=== PATIENT | male | born 1955 | race Caucasian/White ===

== ENCOUNTER 2024-08-31 12:00 | Emergency (ER) | payer MEDICAID, OTHER ==
[~2024-08-31] VITALS: Ht 180.3 cm; Wt 53.5 kg
[2024-08-31 12:08] VITALS: O2SAT 98
[2024-08-31 12:49] VITALS: BP 123/72; PULSE 80; RESP 16; TEMP 97.5; O2SAT 98
[2024-08-31 13:26] LABS: BASOPHILS % 0.2 % (0.0-2.0); EOSINOPHILS % 0.6 % (0.0-5.0); HEMATOCRIT. 34.7 % (42.0-52.0); HEMOGLOBIN. 11.4 g/dL (14.0-18.0); LYMPHOCYTES % 21.1 % (20.0-50.0); MEAN CORPUSCULAR HGB CONC 32.9 g/dL (31.0-37.0); MEAN PLATELET VOLUME 8.4 fl (7.4-10.4); MONOCYTES % 7.7 % (2.0-8.0); NEUTROPHILS % 70.4 % (40.0-76.0); PLATELET 309 x1000/uL (130-400); RED BLOOD CELL COUNT 4.23 mill/uL (4.7-6.1); WHITE BLOOD COUNT 10.1 x1000/uL (4.5-11.0)
[2024-08-31 13:32] LABS: CHLORIDE 103 mEq/L (98-107); POTASSIUM 4.8 mEq/L (3.5-5.1); SODIUM 137 mEq/L (136-145)
[2024-08-31 13:33] LABS: CALCIUM 9.4 mg/dL (8.7-10.4); CARBON DIOXIDE 25 mEq/L (21-32)
[2024-08-31 13:38] LABS: CREATININE 1.2 mg/dL (0.6-1.3); GLUCOSE 297 mg/dL (70-105); UREA NITROGEN BLOOD 18 mg/dL (9-23)
[2024-08-31 13:39] LABS: ALANINE AMINOTRANSFERASE 35 IU/L (10-49); ASPARTATE AMINOTRANSFERASE 21 IU/L (<34)
[2024-08-31 13:40] LABS: ALBUMIN 4.2 g/dL (3.2-4.8); BILIRUBIN DIRECT 0.2 mg/dL (<=3.0); BILIRUBIN TOTAL 0.6 mg/dL (0.1-1.0); PROTEIN TOTAL 8.3 g/dL (6.0-8.3)
[2024-08-31 14:14] LABS: ETHANOL BLOOD < 10 mg/dL (<10)
[2024-08-31 14:26] LABS: BETA HYDROXYBUTYRATE < 0.1 mMol/L (0.0-0.3)
[2024-08-31] MEDS ORDERED: IBUP-2029 MT (14:28)
[2024-08-31] MEDS ORDERED: ONDA-239 PO (14:29)
[2024-08-31 15:35] LABS: CLARITY URINE CLOUDY (CLEAR); COLOR URINE YELLOW (YELLOW); GLUCOSE URINE 3+ (NEGATIVE); KETONES URINE NEGATIVE (NEGATIVE); LEUKOCYTE ESTERASE URINE TRACE (NEGATIVE); NITRITE URINE NEGATIVE (NEGATIVE); OCCULT BLOOD URINE NEGATIVE (NEGATIVE); PH URINE 5.5 (4.5-8.0); PROTEIN URINE TRACE (NEGATIVE); SPECIFIC GRAVITY URINE 1.019 (1.005-1.030)
[2024-08-31 15:49] LABS: *AMPHETAMINES SCREEN URINE NEGATIVE (NEGATIVE); *BARBITURATES SCREEN URINE NEGATIVE (NEGATIVE); *BENZODIAZEPINES SCREEN URINE NEGATIVE (NEGATIVE); *COCAINE SCREEN URINE NEGATIVE (NEGATIVE); CANNABINOID URINE SCREEN PRESUMPTIVE POSITIVE (NEGATIVE); ECSTASY MDMA SCREEN URINE NEGATIVE (NEGATIVE); METHADONE URINE SCREEN NEGATIVE (NEGATIVE); OPIATES URINE SCREEN NEGATIVE (NEGATIVE); PHENCYCLIDINE URINE SCREEN NEGATIVE (NEGATIVE)
[2024-08-31 16:21] LABS: BACTERIA URINE 4+; RBC URINE 0-2 /hpf (0-2); SQUAMOUS EPITHELIAL CELL URINE RARE /lpf (RARE/1+)
== END 2024-08-31 14:58 | disposition home or self-care (01) ==
LOC: ER 12:16
DX: E11.65 Type 2 diabetes mellitus with hyperglycemia (principal); J06.9 Acute upper respiratory infection, unspecified
CPT/HCPCS: 36415; 71045; 80048; 80076; 80305; 80320; 81003; 82010; 82962; 85025; 99284; G0480

== ENCOUNTER 2024-11-05 13:45 | Inpatient (IN) | payer OTHER ==
[~2024-11-05] VITALS: Ht 182.9 cm; Wt 64.6 kg
[~2024-11-05 13:45] MED LIST: ASPI-1160 PO; ATOR20TA65 PO; GLIP10TA17 PO; IBUP-2029 MT; METF-416 PO; ONDA-239 PO; QUET25TA36 PO; SERT-422 PO; TAMS-11
[2024-11-05] MEDS: PIPERACILLIN/TAZO 3.375G/50ML 50 ML IV ONE (14:39)
[2024-11-05] MEDS: SODIUM CHLORIDE 0.9% (SEPSIS BOLUS) IV ONE (14:39)
[2024-11-05] MEDS: VANCOMYCIN 1G PREMIX 200 ML IV ONE (15:38)
[2024-11-05 15:53] LABS: BASOPHILS % 0.3 % (0.0-2.0); EOSINOPHILS % 2.4 % (0.0-5.0); LYMPHOCYTES % 25.4 % (20.0-50.0); MEAN CORPUSCULAR HEMOGLOBIN 27.1 pg (28.0-32.0); MEAN CORPUSCULAR HGB CONC 32.2 g/dL (31.0-37.0); MEAN CORPUSCULAR VOLUME 84.3 fL (80.0-94.0); MONOCYTES % 5.4 % (2.0-8.0); NEUTROPHILS % 66.5 % (40.0-76.0); PLATELET 280 x1000/uL (130-400); RED BLOOD CELL COUNT 2.97 mill/uL (4.7-6.1); RED CELL DISTRIBUTION WIDTH 17.4 % (11.6-14.6); WHITE BLOOD COUNT 14.8 x1000/uL (4.5-11.0)
[2024-11-05 16:03] LABS: CHLORIDE 104 mEq/L (98-107); POTASSIUM 3.9 mEq/L (3.5-5.1); SODIUM 140 mEq/L (136-145)
[2024-11-05 16:04] LABS: CALCIUM 8.6 mg/dL (8.7-10.4); CARBON DIOXIDE 28 mEq/L (21-32)
[2024-11-05 16:05] LABS: PARTIAL THROMBOPLASTIN TIME 28.2 sec (23.4-31.0); PROTHROMBIN TIME 11.5 sec (9.6-11.0)
[2024-11-05 16:09] LABS: CREATININE 0.9 mg/dL (0.6-1.3); GLUCOSE 74 mg/dL (70-105); UREA NITROGEN BLOOD 20 mg/dL (9-23)
[2024-11-05 16:11] LABS: ALANINE AMINOTRANSFERASE 20 IU/L (10-49); ALBUMIN 2.7 g/dL (3.2-4.8); ASPARTATE AMINOTRANSFERASE 20 IU/L (<34); BILIRUBIN DIRECT 0.2 mg/dL (<=3.0); BILIRUBIN TOTAL 0.4 mg/dL (0.1-1.0); LACTIC ACID 2.4 mmol/L (0.4-2.0); PROTEIN TOTAL 7.6 g/dL (6.0-8.3)
[2024-11-05 16:21] LABS: TROPONIN I HIGH SENSITIVITY < 4 ng/L (3.0-53)
[2024-11-05 16:45] LABS: CLARITY URINE CLOUDY (CLEAR); COLOR URINE YELLOW (YELLOW); GLUCOSE URINE NEGATIVE (NEGATIVE); KETONES URINE NEGATIVE (NEGATIVE); LEUKOCYTE ESTERASE URINE 1+ (NEGATIVE); NITRITE URINE NEGATIVE (NEGATIVE); OCCULT BLOOD URINE 2+ (NEGATIVE); PROTEIN URINE 2+ (NEGATIVE); SPECIFIC GRAVITY URINE 1.021 (1.005-1.030); UROBILINOGEN URINE 0.2 E.U./dL (0.2-1.0)
[2024-11-05 16:53] LABS: RBC URINE 0-2 /hpf (0-2)
[2024-11-05 16:54] LABS: BACTERIA URINE 4+; SQUAMOUS EPITHELIAL CELL URINE NONE SEEN /lpf (RARE/1+); YEAST URINE 2+
[2024-11-05] MEDS ORDERED: CLONIDINE 0.1MG TABLET PO PRN (19:00)
[2024-11-05] MEDS ORDERED: ONDANSETRON HCL 4MG/2ML INJ IV PRN (19:00)
[2024-11-05] MEDS ORDERED: HYDROCODONE/ACETAMINOPHEN 5/325MG TABLET PO PRN (19:00)
[2024-11-05] MEDS ORDERED: SODIUM CHLORIDE 0.9% 250 ML IV NR (23:00)
[2024-11-05] MEDS: MIDODRINE HCL 5MG TABLET PO SCH (23:08)
[2024-11-06] VITALS (8 sets, daily range): BP systolic 92–124; BP diastolic 58–80; PULSE 102–130; RESP 32–42; TEMP 36.3–37.3; O2SAT 97–99
[2024-11-06] MEDS: ALBUMIN HUMAN 25GM/500ML (5%) IV NR (00:58)
[2024-11-06 06:49] LABS: BASOPHILS % 0.3 % (0.0-2.0); EOSINOPHILS % 2.7 % (0.0-5.0); HEMOGLOBIN. 8.3 g/dL (14.0-18.0); LYMPHOCYTES % 15.4 % (20.0-50.0); MEAN CORPUSCULAR HEMOGLOBIN 28.2 pg (28.0-32.0); MEAN CORPUSCULAR HGB CONC 33.2 g/dL (31.0-37.0); MEAN CORPUSCULAR VOLUME 84.8 fL (80.0-94.0); NEUTROPHILS % 78.6 % (40.0-76.0); PLATELET 282 x1000/uL (130-400); RED BLOOD CELL COUNT 2.95 mill/uL (4.7-6.1); RED CELL DISTRIBUTION WIDTH 17.4 % (11.6-14.6); WHITE BLOOD COUNT 12.4 x1000/uL (4.5-11.0)
[2024-11-06 07:01] LABS: CHLORIDE 111 mEq/L (98-107); POTASSIUM 3.8 mEq/L (3.5-5.1); SODIUM 142 mEq/L (136-145)
[2024-11-06 07:02] LABS: CALCIUM 8.4 mg/dL (8.7-10.4); CARBON DIOXIDE 24 mEq/L (21-32)
[2024-11-06 07:07] LABS: CREATININE 0.7 mg/dL (0.6-1.3); GLUCOSE 126 mg/dL (70-105); UREA NITROGEN BLOOD 13 mg/dL (9-23)
[2024-11-06 07:27] LABS: CREATINE KINASE < 15 IU/L (46-171); TROPONIN I HIGH SENSITIVITY < 4 ng/L (3.0-53)
[2024-11-06] MEDS ORDERED: NALOXONE HCL 0.4MG/ML VIAL IV PRN (09:45)
[2024-11-06] MEDS: ENOXAPARIN 40MG/0.4ML SYR SUBCUT SCH (10:54)
[2024-11-06] MEDS: PANTOPRAZOLE SODIUM 40 MG/VIAL IV SCH (10:54)
[2024-11-06] MEDS: DILTIAZEM HCL 30MG TABLET PO SCH (11:19)
[2024-11-06 11:22] LABS: *AMPHETAMINES SCREEN URINE NEGATIVE (NEGATIVE)
[2024-11-06 11:23] LABS: *BARBITURATES SCREEN URINE NEGATIVE (NEGATIVE); *BENZODIAZEPINES SCREEN URINE NEGATIVE (NEGATIVE); *COCAINE SCREEN URINE NEGATIVE (NEGATIVE); METHADONE URINE SCREEN NEGATIVE (NEGATIVE); OPIATES URINE SCREEN NEGATIVE (NEGATIVE); PHENCYCLIDINE URINE SCREEN NEGATIVE (NEGATIVE)
[2024-11-06 11:24] LABS: CANNABINOID URINE SCREEN NEGATIVE (NEGATIVE); ECSTASY MDMA SCREEN URINE NEGATIVE (NEGATIVE)
[2024-11-06] MEDS ORDERED: CEFEPIME 1GM IN DEXT 5% 50ML IV SCH (12:30)
[2024-11-06 14:39] LABS: CREATINE KINASE < 15 IU/L (46-171); TROPONIN I HIGH SENSITIVITY < 4 ng/L (3.0-53)
[2024-11-06] MEDS: CEFEPIME 2GM/50ML DUPLEX 50 ML IV SCH (15:36)
[2024-11-06] MEDS: BLOOD SUGAR DIAGNOSTIC STRIP TEST SCH (17:30)
[2024-11-06] MEDS: ACETAMINOPHEN 325MG TABLET PO PRN (17:31)
[2024-11-06] MEDS: INSULIN LISPRO 100 UNITS/ML SUBCUT SCH (18:41)
[2024-11-06] MEDS: ZOLPIDEM TARTRATE 5MG TABLET PO PRN (23:09)
[2024-11-07] VITALS (21 sets, daily range): BP systolic 76–119; BP diastolic 45–77; PULSE 102–136; RESP 22–42; TEMP 36.6–37.4; O2SAT 91–100
[2024-11-07] MEDS: CEFEPIME 2GM/50ML DUPLEX 50 ML IV SCH (05:43)
[2024-11-07 07:04] LABS: CARBON DIOXIDE 25 mEq/L (21-32); CHLORIDE 107 mEq/L (98-107); POTASSIUM 3.5 mEq/L (3.5-5.1); SODIUM 140 mEq/L (136-145)
[2024-11-07 07:05] LABS: CALCIUM 8.5 mg/dL (8.7-10.4)
[2024-11-07 07:09] LABS: CREATININE 0.7 mg/dL (0.6-1.3)
[2024-11-07 07:10] LABS: GLUCOSE 99 mg/dL (70-105); UREA NITROGEN BLOOD 12 mg/dL (9-23)
[2024-11-07 07:12] LABS: THYROID STIMULATING HORMONE 0.72 uIU/mL (0.55-4.78)
[2024-11-07 07:58] LABS: BASOPHILS % 0.9 % (0.0-2.0); EOSINOPHILS % 3.4 % (0.0-5.0); HEMATOCRIT. 22.3 % (42.0-52.0); HEMOGLOBIN. 7.3 g/dL (14.0-18.0); LYMPHOCYTES % 17.3 % (20.0-50.0); MEAN CORPUSCULAR HEMOGLOBIN 27.1 pg (28.0-32.0); MEAN CORPUSCULAR HGB CONC 32.7 g/dL (31.0-37.0); MEAN CORPUSCULAR VOLUME 82.9 fL (80.0-94.0); MEAN PLATELET VOLUME 8.4 fl (7.4-10.4); MONOCYTES % 2.8 % (2.0-8.0); NEUTROPHILS % 75.6 % (40.0-76.0); PLATELET 275 x1000/uL (130-400); RED BLOOD CELL COUNT 2.69 mill/uL (4.7-6.1); RED CELL DISTRIBUTION WIDTH 17.4 % (11.6-14.6); WHITE BLOOD COUNT 13.6 x1000/uL (4.5-11.0)
[2024-11-07] MEDS: LACTULOSE 20G/30ML UDC PO PRN (15:28)
[2024-11-07] MEDS: NA PHOS,M-B/NA PHOS,DI-BA ENEMA 118ML PR ONE (16:02)
[2024-11-07] MEDS: NA PHOS,M-B/NA PHOS,DI-BA ENEMA 118ML PR NR (16:33)
[2024-11-07] MEDS: MINERAL OIL ENEMA 133ML PR NR (17:44)
[2024-11-08] VITALS (12 sets, daily range): BP systolic 99–132; BP diastolic 62–76; PULSE 108–134; RESP 20–43; TEMP 36.8–38; O2SAT 93–98
[2024-11-08] MEDS ORDERED: FLUC100T MT (13:18)
[2024-11-08] MEDS ORDERED: LEVO750T68 MT (13:18)
[2024-11-08] MEDS: FLUCONAZOLE 100MG TABLET PO SCH (13:47)
[2024-11-09] VITALS (13 sets, daily range): BP systolic 95–120; BP diastolic 52–77; PULSE 96–124; RESP 26–54; TEMP 36.5–37.8; O2SAT 90–100
[2024-11-09] MEDS: METOPROLOL TARTRATE 25MG TABLET PO SCH (13:10)
[2024-11-09] MEDS: LORAZEPAM 0.5MG TABLET PO NR (17:44)
[2024-11-09] MEDS: LINEZOLID 600MG TABLET PO SCH (17:44)
[2024-11-09] MEDS: MIDODRINE HCL 2.5MG TABLET PO SCH (17:45)
[2024-11-09] MEDS: MORPHINE SULFATE 2 MG/ML INJ (NOT FOR IM USE) IV PRN (22:59)
[2024-11-10] VITALS (12 sets, daily range): BP systolic 90–109; BP diastolic 58–70; PULSE 101–118; RESP 23–41; TEMP 36.2–37.1; O2SAT 96–100
[2024-11-10] MEDS: MIDODRINE HCL 5MG TABLET PO SCH (12:54)
[2024-11-10] MEDS: SODIUM CHLORIDE 0.9% 500 ML IV ONE (13:15)
[2024-11-10] MEDS: DIGOXIN 500MCG/2ML AMP IV NR (16:43)
[2024-11-11] VITALS (13 sets, daily range): BP systolic 102–154; BP diastolic 61–93; PULSE 117–132; RESP 24–52; TEMP 36.3–37.3; O2SAT 75–100
[2024-11-11] MEDS: ENOXAPARIN 30MG/0.3ML SYR SUBCUT SCH (10:16)
[2024-11-11] MEDS: METOPROLOL TARTRATE 25MG TABLET PO SCH (10:17)
[2024-11-11] MEDS: LORAZEPAM 1MG TABLET PO PRN (14:22)
[2024-11-11 18:06] LABS: BASOPHILS % 0.3 % (0.0-2.0); EOSINOPHILS % 0.2 % (0.0-5.0); HEMOGLOBIN. 7.5 g/dL (14.0-18.0); LYMPHOCYTES % 11.6 % (20.0-50.0); MEAN CORPUSCULAR HEMOGLOBIN 26.4 pg (28.0-32.0); MEAN CORPUSCULAR HGB CONC 31.1 g/dL (31.0-37.0); MEAN CORPUSCULAR VOLUME 84.9 fL (80.0-94.0); MONOCYTES % 2.6 % (2.0-8.0); NEUTROPHILS % 85.3 % (40.0-76.0); PLATELET 403 x1000/uL (130-400); RED BLOOD CELL COUNT 2.83 mill/uL (4.7-6.1); RED CELL DISTRIBUTION WIDTH 18.4 % (11.6-14.6); WHITE BLOOD COUNT 25.6 x1000/uL (4.5-11.0)
[2024-11-11 18:14] LABS: CHLORIDE 104 mEq/L (98-107); POTASSIUM 4.1 mEq/L (3.5-5.1); SODIUM 141 mEq/L (136-145)
[2024-11-11 18:15] LABS: CALCIUM 9.4 mg/dL (8.7-10.4); CARBON DIOXIDE 25 mEq/L (21-32)
[2024-11-11 18:20] LABS: CREATININE 0.7 mg/dL (0.6-1.3); GLUCOSE 61 mg/dL (70-105); UREA NITROGEN BLOOD 15 mg/dL (9-23)
[2024-11-11] MEDS: PIPERACILLIN/TAZO 3.375G/50ML 50 ML IV SCH (23:55)
[2024-11-12] VITALS (24 sets, daily range): BP systolic 84–154; BP diastolic 49–84; PULSE 113–150; RESP 16–50; TEMP 36.4–36.9; O2SAT 94–100
[2024-11-12] MEDS: SODIUM CHLORIDE 0.9% 500 ML IV ONE ×2 (02:34→03:01)
[2024-11-12 02:59] LABS: BG BASE EXCESS -2.9 mmol/L (-2.0-3.0); BG CARBOXYHEMOGLOBIN 0.4 % (0.5-1.5); BG DEOXYHEMOGLOBIN 9.7 % (0.0-5.0); BG FRACTION INSPIRED OXYGEN 40; BG HCO3 ACT 24.6 mmol/L (21.0-28.0); BG OXYGEN SATURATION 90.3 % (94.0-98.0); BG OXYHEMOGLOBIN 89.9 % (94.0-98.0); BG PCO2 56.8 mmHg (35.0-48.0); BG PH 7.254 (7.350-7.450); BG PO2 68.6 mmHg (83.0-108.0); BG TOTAL HEMOGLOBIN 9.3 g/dL (13.5-17.5); BG VENT MODE MASK - SIMPLE
[2024-11-12 07:11] LABS: BASOPHILS % 0.2 % (0.0-2.0); HEMATOCRIT. 27.4 % (42.0-52.0); HEMOGLOBIN. 8.4 g/dL (14.0-18.0); LYMPHOCYTES % 7.8 % (20.0-50.0); MEAN CORPUSCULAR HEMOGLOBIN 26.2 pg (28.0-32.0); MEAN CORPUSCULAR HGB CONC 30.7 g/dL (31.0-37.0); MEAN CORPUSCULAR VOLUME 85.3 fL (80.0-94.0); MEAN PLATELET VOLUME 7.9 fl (7.4-10.4); PLATELET 370 x1000/uL (130-400); RED BLOOD CELL COUNT 3.21 mill/uL (4.7-6.1); RED CELL DISTRIBUTION WIDTH 18.5 % (11.6-14.6); WHITE BLOOD COUNT 27.5 x1000/uL (4.5-11.0)
[2024-11-12 07:42] LABS: CHLORIDE 106 mEq/L (98-107); POTASSIUM 4.3 mEq/L (3.5-5.1); SODIUM 144 mEq/L (136-145)
[2024-11-12 07:43] LABS: CARBON DIOXIDE 23 mEq/L (21-32)
[2024-11-12 07:44] LABS: CALCIUM 9.7 mg/dL (8.7-10.4)
[2024-11-12 07:48] LABS: CREATININE 0.8 mg/dL (0.6-1.3); GLUCOSE 133 mg/dL (70-105); UREA NITROGEN BLOOD 17 mg/dL (9-23)
[2024-11-12] MEDS: DEXT 5%/0.9% NACL 1,000 ML IV SCH (09:00)
[2024-11-12] MEDS: METOPROLOL TARTRATE 25MG TABLET PO NR (09:00)
[2024-11-12 09:53] LABS: BG BASE EXCESS -2.3 mmol/L (-2.0-3.0); BG CARBOXYHEMOGLOBIN 1.4 % (0.5-1.5); BG FRACTION INSPIRED OXYGEN 50; BG HCO3 ACT 25.9 mmol/L (21.0-28.0); BG METHEMOGLOBIN 0.3 % (0.5-1.5); BG OXYGEN SATURATION 94.9 % (94.0-98.0); BG OXYHEMOGLOBIN 93.3 % (94.0-98.0); BG PCO2 67.2 mmHg (35.0-48.0); BG PH 7.204 (7.350-7.450); BG PO2 88.4 mmHg (83.0-108.0); BG SAMPLE SITE RIGHT BRACHIAL; BG TOTAL HEMOGLOBIN 7.7 g/dL (13.5-17.5); BG VENT MODE MASK - SIMPLE
[2024-11-12] MEDS: SODIUM CHLORIDE 0.9% 1,000 ML IV ONE (11:43)
[2024-11-12] MEDS: METOPROLOL TARTRATE 25MG TABLET PO SCH (19:30)
[2024-11-12] MEDS: FLUCONAZOLE 400MG/200ML BAG 200 ML IV SCH (19:30)
[2024-11-12] MEDS: PHENYLEPHRINE 100 MG in DEXT 5% WATER 240 ML IV PRN (20:13)
[2024-11-12] MEDS: VASOPRESSIN 20 UNIT in SODIUM CHLORIDE 0.9% 99 ML IV PRN (20:14)
[2024-11-12] MEDS ORDERED: METOPROLOL TARTRATE 25MG TABLET PO SCH (21:00)
[2024-11-12] MEDS: PROPOFOL 10MG/ML 100ML 100 ML IV PRN (21:43)
[2024-11-12] MEDS: ACETYLCYSTEINE 200MG/ML 20% VIAL 4ML INH SCH (21:54)
[2024-11-12] MEDS: IPRATROPIUM BROMIDE (0.02%) 0.5MG/2.5ML NEB HHN SCH (21:54)
[2024-11-12 22:35] LABS: BG BASE EXCESS -0.7 mmol/L (-2.0-3.0); BG CARBOXYHEMOGLOBIN 0.2 % (0.5-1.5); BG DEOXYHEMOGLOBIN 0.3 % (0.0-5.0); BG FRACTION INSPIRED OXYGEN 100; BG HCO3 ACT 26.3 mmol/L (21.0-28.0); BG METHEMOGLOBIN 0.3 % (0.5-1.5); BG OXYGEN SATURATION 99.7 % (94.0-98.0); BG OXYHEMOGLOBIN 99.2 % (94.0-98.0); BG PCO2 58.1 mmHg (35.0-48.0); BG PH 7.273 (7.350-7.450); BG TOTAL HEMOGLOBIN 6.8 g/dL (13.5-17.5); BG VENT MODE VENT - AC
[2024-11-12] MEDS: LINEZOLID 600 MG PREMIX 300 ML IV SCH (23:48)
[2024-11-12] MEDS: MEROPENEM 1GM/50ML DUPLEX 50 ML IV SCH (23:49)
[2024-11-13] VITALS (115 sets, daily range): BP systolic 97–163; BP diastolic 51–85; PULSE 3–113; RESP 17–36; TEMP 36.3918–37.7; O2SAT 92–100
[2024-11-13 06:34] LABS: BASOPHILS % 0.3 % (0.0-2.0); DIFFERENTIAL COMMENT 0; EOSINOPHILS % 0.1 % (0.0-5.0); LYMPHOCYTES % 11.2 % (20.0-50.0); MEAN CORPUSCULAR HEMOGLOBIN 27.1 pg (28.0-32.0); MEAN CORPUSCULAR HGB CONC 32.2 g/dL (31.0-37.0); MEAN CORPUSCULAR VOLUME 84.1 fL (80.0-94.0); MEAN PLATELET VOLUME 7.5 fl (7.4-10.4); MONOCYTES % 2.7 % (2.0-8.0); NEUTROPHILS % 85.7 % (40.0-76.0); PLATELET 281 x1000/uL (130-400); RED BLOOD CELL COUNT 2.13 mill/uL (4.7-6.1); RED CELL DISTRIBUTION WIDTH 18.3 % (11.6-14.6); WHITE BLOOD COUNT 23.3 x1000/uL (4.5-11.0)
[2024-11-13 06:38] LABS: POTASSIUM 3.5 mEq/L (3.5-5.1)
[2024-11-13 06:39] LABS: CALCIUM 8.7 mg/dL (8.7-10.4)
[2024-11-13 06:51] LABS: CREATININE 1.6 mg/dL (0.6-1.3)
[2024-11-13 07:44] LABS: HEMATOCRIT. 17.9 % (42.0-52.0); HEMOGLOBIN. 5.8 g/dL (14.0-18.0)
[2024-11-13 08:50] LABS: BG BASE EXCESS -0.3 mmol/L (-2.0-3.0); BG CARBOXYHEMOGLOBIN 0.2 % (0.5-1.5); BG DEOXYHEMOGLOBIN 3.7 % (0.0-5.0); BG FRACTION INSPIRED OXYGEN 40; BG HCO3 ACT 25.6 mmol/L (21.0-28.0); BG METHEMOGLOBIN 0.1 % (0.5-1.5); BG OXYGEN SATURATION 96.3 % (94.0-98.0); BG PCO2 49.4 mmHg (35.0-48.0); BG PH 7.333 (7.350-7.450); BG PO2 87.8 mmHg (83.0-108.0); BG SAMPLE SITE RIGHT RADIAL; BG TOTAL HEMOGLOBIN 6.5 g/dL (13.5-17.5); BG VENT MODE VENT - PRVC
[2024-11-13] MEDS: METHYLPREDNISOLONE SOD SUCC 40MG/ML (ACT-O-VIAL) IV SCH (10:21)
[2024-11-13] MEDS ORDERED: LIDOCAINE HCL 1% 10 MG/ML 10ML VIAL ONE (12:38)
[2024-11-13 14:43] LABS: INFLUENZA TYPE A Presumptive Negative (Pres. Neg.); INFLUENZA TYPE B Presumptive Negative (Pres. Neg.)
[2024-11-13 17:29] LABS: HEMATOCRIT 20.7 % (42.0-52.0); HEMOGLOBIN 6.5 g/dL (14.0-18.0)
[2024-11-13 17:53] LABS: INR 1.2; PROTHROMBIN TIME 13.1 sec (9.6-11.0)
[2024-11-13] MEDS ORDERED: METOPROLOL TARTRATE 25MG TABLET PO SCH (21:00)
[2024-11-13 21:42] LABS: HEMATOCRIT 26.3 % (42.0-52.0); HEMOGLOBIN 8.7 g/dL (14.0-18.0)
[2024-11-14] VITALS (109 sets, daily range): BP systolic 79–122; BP diastolic 55–73; PULSE 69–121; RESP 10–54; TEMP 36.5–36.7; O2SAT 83–100
[2024-11-14] MEDS ORDERED: SODIUM CHLORIDE 0.9% 100 ML IV ONE (00:45)
[2024-11-14] MEDS: PROPOFOL 10MG/ML 100ML 100 ML IV PRN (01:09)
[2024-11-14] MEDS: SODIUM CHLORIDE 0.9% 1,000 ML IV ONE ×2 (01:17→14:12)
[2024-11-14 06:59] LABS: POTASSIUM 3.9 mEq/L (3.5-5.1)
[2024-11-14 07:00] LABS: CALCIUM 8.2 mg/dL (8.7-10.4)
[2024-11-14 07:15] LABS: BASOPHILS % 0.5 % (0.0-2.0); HEMATOCRIT. 26.3 % (42.0-52.0); HEMOGLOBIN. 8.9 g/dL (14.0-18.0); LYMPHOCYTES % 12.3 % (20.0-50.0); MEAN CORPUSCULAR HEMOGLOBIN 28.7 pg (28.0-32.0); MEAN CORPUSCULAR HGB CONC 33.8 g/dL (31.0-37.0); MEAN PLATELET VOLUME 8.4 fl (7.4-10.4); MONOCYTES % 1.5 % (2.0-8.0); NEUTROPHILS % 85.7 % (40.0-76.0); PLATELET 211 x1000/uL (130-400); RED BLOOD CELL COUNT 3.09 mill/uL (4.7-6.1); RED CELL DISTRIBUTION WIDTH 17.7 % (11.6-14.6); WHITE BLOOD COUNT 14.7 x1000/uL (4.5-11.0)
[2024-11-14 07:44] LABS: CREATININE 2.3 mg/dL (0.6-1.3)
[2024-11-14] MEDS: SODIUM CHLORIDE 3% FOR INH 4ML NEB INH SCH (09:09)
[2024-11-14 10:00] LABS: BG BASE EXCESS -5.3 mmol/L (-2.0-3.0); BG CARBOXYHEMOGLOBIN 0.7 % (0.5-1.5); BG DEOXYHEMOGLOBIN 4.4 % (0.0-5.0); BG FRACTION INSPIRED OXYGEN 30; BG HCO3 ACT 20.6 mmol/L (21.0-28.0); BG METHEMOGLOBIN 0.3 % (0.5-1.5); BG OXYGEN SATURATION 95.6 % (94.0-98.0); BG OXYHEMOGLOBIN 94.6 % (94.0-98.0); BG PCO2 42.4 mmHg (35.0-48.0); BG PH 7.305 (7.350-7.450); BG PO2 88.2 mmHg (83.0-108.0); BG SAMPLE SITE RIGHT RADIAL; BG TOTAL HEMOGLOBIN 8.9 g/dL (13.5-17.5); BG TOTAL RESPIRATORY RATE 29 b/min; BG VENT MODE VENT PRVC
[2024-11-14] MEDS: FENTANYL CITRATE/PF 2,500 MCG in SODIUM CHLORIDE 0.9% 200 ML IV PRN (14:32)
[2024-11-14] MEDS: MIDAZOLAM HCL 100 MG in SODIUM CHLORIDE 0.9% 80 ML IV PRN (14:33)
[2024-11-15] VITALS (102 sets, daily range): BP systolic 86–152; BP diastolic 59–96; PULSE 93–118; RESP 15–27; TEMP 36–38; O2SAT 90–100
[2024-11-15 06:08] LABS: HEMATOCRIT 29.9 % (42.0-52.0); HEMOGLOBIN 8.9 g/dL (14.0-18.0); MEAN CORPUSCULAR HEMOGLOBIN 28.2 pg (28.0-32.0); MEAN CORPUSCULAR HGB CONC 29.9 g/dL (31.0-37.0); MEAN CORPUSCULAR VOLUME 94.4 fL (80.0-94.0); PLATELET 199 x1000/uL (130-400); RED BLOOD CELL COUNT 3.17 mill/uL (4.7-6.1); RED CELL DISTRIBUTION WIDTH 19.3 % (11.6-14.6); WHITE BLOOD COUNT 24.8 x1000/uL (4.5-11.0)
[2024-11-15 06:34] LABS: CALCIUM 7.2 mg/dL (8.7-10.4); CARBON DIOXIDE 18 mEq/L (21-32); CHLORIDE 107 mEq/L (98-107); POTASSIUM 4.5 mEq/L (3.5-5.1); SODIUM 136 mEq/L (136-145)
[2024-11-15 06:39] LABS: CREATININE 2.9 mg/dL (0.6-1.3)
[2024-11-15 06:40] LABS: TRIGLYCERIDE 192 mg/dL (0-150); UREA NITROGEN BLOOD 52 mg/dL (9-23)
[2024-11-15 06:42] LABS: PHOSPHORUS 7.1 mg/dL (2.5-4.9)
[2024-11-15] MEDS ORDERED: FENTANYL 2500MCG/250ML PMX 250 ML IV PRN (07:00)
[2024-11-15 07:01] LABS: GLUCOSE 713 mg/dL (70-105)
[2024-11-15] MEDS: MEROPENEM 500MG/50ML 50 ML IV SCH (08:17)
[2024-11-15] MEDS: CALCIUM ACETATE 667MG CAPSULE PO NR (09:13)
[2024-11-15 09:27] LABS: BG BASE EXCESS -14.4 mmol/L (-2.0-3.0); BG CARBOXYHEMOGLOBIN 0.4 % (0.5-1.5); BG DEOXYHEMOGLOBIN 4.5 % (0.0-5.0); BG FRACTION INSPIRED OXYGEN 40; BG HCO3 ACT 18.1 mmol/L (21.0-28.0); BG METHEMOGLOBIN 0.1 % (0.5-1.5); BG OXYGEN SATURATION 95.5 % (94.0-98.0); BG PCO2 85.1 mmHg (35.0-48.0); BG PH 6.946 (7.350-7.450); BG PO2 96.2 mmHg (83.0-108.0); BG SAMPLE SITE RIGHT RADIAL; BG TOTAL HEMOGLOBIN 10.3 g/dL (13.5-17.5); BG TOTAL RESPIRATORY RATE 16 b/min; BG VENT MODE VENT - AC
[2024-11-15] MEDS: SODIUM CHLORIDE 0.9% 500 ML IV ONE (10:31)
[2024-11-15] MEDS: BLOOD SUGAR DIAGNOSTIC STRIP TEST SCH (11:30)
[2024-11-15] MEDS: INSULIN LISPRO 100 UNITS/ML SUBCUT NR (12:00)
[2024-11-15] MEDS: INSULIN LISPRO 100 UNITS/ML SUBCUT SCH (12:00)
[2024-11-15 12:19] LABS: BG BASE EXCESS -12.3 mmol/L (-2.0-3.0); BG CARBOXYHEMOGLOBIN 0.2 % (0.5-1.5); BG DEOXYHEMOGLOBIN 3.6 % (0.0-5.0); BG FRACTION INSPIRED OXYGEN 40; BG HCO3 ACT 17.3 mmol/L (21.0-28.0); BG METHEMOGLOBIN 0.1 % (0.5-1.5); BG OXYGEN SATURATION 96.4 % (94.0-98.0); BG OXYHEMOGLOBIN 96.1 % (94.0-98.0); BG PCO2 58.6 mmHg (35.0-48.0); BG PH 7.088 (7.350-7.450); BG PO2 95.6 mmHg (83.0-108.0); BG SAMPLE SITE RIGHT RADIAL; BG TOTAL HEMOGLOBIN 9.9 g/dL (13.5-17.5); BG VENT MODE VENT - PRVC
[2024-11-15] MEDS: AZITHROMYCIN 500 MG TABLET GT SCH (17:25)
[2024-11-15] MEDS: SODIUM CHLORIDE 0.9% 1,000 ML IV SCH (17:25)
[2024-11-16] VITALS (101 sets, daily range): BP systolic 93–128; BP diastolic 60–79; PULSE 93–127; RESP 13–34; TEMP 36.4–38.3; O2SAT 96–100
[2024-11-16 04:51] LABS: HEMATOCRIT. 27.7 % (42.0-52.0); HEMOGLOBIN. 8.5 g/dL (14.0-18.0); MEAN CORPUSCULAR HEMOGLOBIN 27.8 pg (28.0-32.0); MEAN CORPUSCULAR HGB CONC 30.7 g/dL (31.0-37.0); MEAN CORPUSCULAR VOLUME 90.3 fL (80.0-94.0); MEAN PLATELET VOLUME 8.7 fl (7.4-10.4); PLATELET 122 x1000/uL (130-400); RED BLOOD CELL COUNT 3.07 mill/uL (4.7-6.1); RED CELL DISTRIBUTION WIDTH 18.9 % (11.6-14.6); WHITE BLOOD COUNT 31.1 x1000/uL (4.5-11.0)
[2024-11-16 05:02] LABS: POTASSIUM 4.6 mEq/L (3.5-5.1)
[2024-11-16 05:04] LABS: CALCIUM 7.5 mg/dL (8.7-10.4)
[2024-11-16 05:08] LABS: CREATININE 3.4 mg/dL (0.6-1.3)
[2024-11-16 05:30] LABS: DIFFERENTIAL COMMENT 1
[2024-11-16] MEDS: PHENYLEPHRINE 100 MG in DEXT 5% WATER 240 ML IV PRN (07:59)
[2024-11-16 08:39] LABS: BG CARBOXYHEMOGLOBIN 0.3 % (0.5-1.5); BG DEOXYHEMOGLOBIN 7.3 % (0.0-5.0); BG FRACTION INSPIRED OXYGEN 40; BG HCO3 ACT 16.4 mmol/L (21.0-28.0); BG METHEMOGLOBIN 0.3 % (0.5-1.5); BG OXYGEN SATURATION 92.7 % (94.0-98.0); BG OXYHEMOGLOBIN 92.1 % (94.0-98.0); BG PCO2 54.6 mmHg (35.0-48.0); BG PH 7.095 (7.350-7.450); BG PO2 77.1 mmHg (83.0-108.0); BG SAMPLE SITE RIGHT RADIAL; BG TOTAL HEMOGLOBIN 10.2 g/dL (13.5-17.5); BG VENT MODE VENT - PRVC
[2024-11-16] MEDS: METHYLPREDNISOLONE SOD SUCC 40MG/ML (ACT-O-VIAL) IV SCH (09:15)
[2024-11-16 11:50] LABS: BG BASE EXCESS -11.2 mmol/L (-2.0-3.0); BG CARBOXYHEMOGLOBIN 0.5 % (0.5-1.5); BG DEOXYHEMOGLOBIN 4.5 % (0.0-5.0); BG HCO3 ACT 17.9 mmol/L (21.0-28.0); BG OXYGEN SATURATION 95.5 % (94.0-98.0); BG PCO2 57.2 mmHg (35.0-48.0); BG PH 7.113 (7.350-7.450); BG PO2 88.3 mmHg (83.0-108.0); BG SAMPLE SITE RIGHT RADIAL; BG TOTAL HEMOGLOBIN 8.9 g/dL (13.5-17.5)
[2024-11-16] MEDS ORDERED: SODIUM BICARBONATE 8.4% 50MEQ/50ML SYR IV ONE (12:00)
[2024-11-16] MEDS: SODIUM BICARBONATE 100 MEQ in DEXTROSE 5% WATER 900 ML IV SCH (12:49)
[2024-11-16 13:35] LABS: ANISOCYTOSIS 1+; PLATELET ESTIMATE NORMAL
[2024-11-16 15:54] LABS: BG CARBOXYHEMOGLOBIN 0.3 % (0.5-1.5); BG DEOXYHEMOGLOBIN 7.5 % (0.0-5.0); BG FRACTION INSPIRED OXYGEN 50; BG HCO3 ACT 16.2 mmol/L (21.0-28.0); BG METHEMOGLOBIN 0.3 % (0.5-1.5); BG OXYGEN SATURATION 92.5 % (94.0-98.0); BG OXYHEMOGLOBIN 91.9 % (94.0-98.0); BG PH 7.104 (7.350-7.450); BG PO2 77.9 mmHg (83.0-108.0); BG SAMPLE SITE RIGHT RADIAL; BG TOTAL HEMOGLOBIN 10.1 g/dL (13.5-17.5); BG VENT MODE VENT - PRVC
[2024-11-16] MEDS: FLUCONAZOLE 200 MG/100ML BAG 100 ML IV SCH (17:55)
[2024-11-16] MEDS: VANCOMYCIN 125MG/2.5ML ORAL SYR PO SCH (17:56)
[2024-11-16] MEDS: FENTANYL 2500MCG/250ML PMX 250 ML IV PRN (18:53)
[2024-11-16] MEDS: IPRATROPIUM/ALBUTEROL 0.5-3(2.5)MG/3ML NEB HHN SCH (20:23)
[2024-11-16] MEDS: MEROPENEM 500 MG in DEXTROSE 5% WATER 50 ML IV SCH (21:47)
[2024-11-17] VITALS (90 sets, daily range): BP systolic 79–135; BP diastolic 61–90; PULSE 80–120; RESP 18–32; TEMP 36.33624–38.1; O2SAT 97–100
[2024-11-17 06:25] LABS: HEMATOCRIT 26.1 % (42.0-52.0); HEMOGLOBIN 8.3 g/dL (14.0-18.0); MEAN CORPUSCULAR HEMOGLOBIN 28.1 pg (28.0-32.0); MEAN CORPUSCULAR HGB CONC 31.9 g/dL (31.0-37.0); MEAN CORPUSCULAR VOLUME 88.1 fL (80.0-94.0); PLATELET 63 x1000/uL (130-400); RED BLOOD CELL COUNT 2.96 mill/uL (4.7-6.1); RED CELL DISTRIBUTION WIDTH 19.1 % (11.6-14.6); WHITE BLOOD COUNT 27.5 x1000/uL (4.5-11.0)
[2024-11-17 06:30] LABS: POTASSIUM 5.6 mEq/L (3.5-5.1)
[2024-11-17 06:32] LABS: CALCIUM 7.4 mg/dL (8.7-10.4)
[2024-11-17 06:36] LABS: CREATININE 4.1 mg/dL (0.6-1.3)
[2024-11-17 08:40] LABS: BG BASE EXCESS -11.1 mmol/L (-2.0-3.0); BG CARBOXYHEMOGLOBIN 0.3 % (0.5-1.5); BG DEOXYHEMOGLOBIN 5.8 % (0.0-5.0); BG FRACTION INSPIRED OXYGEN 50; BG METHEMOGLOBIN 0.1 % (0.5-1.5); BG OXYGEN SATURATION 94.2 % (94.0-98.0); BG OXYHEMOGLOBIN 93.8 % (94.0-98.0); BG PCO2 49.6 mmHg (35.0-48.0); BG PH 7.154 (7.350-7.450); BG PO2 81.4 mmHg (83.0-108.0); BG SAMPLE SITE RIGHT RADIAL; BG TOTAL HEMOGLOBIN 8.1 g/dL (13.5-17.5); BG VENT MODE VENT - AC/PRVC
[2024-11-17 09:35] LABS: POTASSIUM 5.2 mEq/L (3.5-5.1)
[2024-11-17 09:37] LABS: CALCIUM 7.3 mg/dL (8.7-10.4)
[2024-11-17 09:42] LABS: CREATININE 3.9 mg/dL (0.6-1.3)
[2024-11-17] MEDS ORDERED: LIDOCAINE HCL 1% 10 MG/ML 10ML VIAL ONE (10:37)
[2024-11-17 12:17] LABS: HEPATITIS B SURFACE ANTIGEN NEGATIVE (Negative)
[2024-11-17 12:38] LABS: HEPATITIS A AB IGM NEGATIVE (Negative); HEPATITIS B CORE AB IGM REACTIVE (Negative)
[2024-11-17 12:39] LABS: HEPATITIS C AB NON REACTIVE (Neg) (Negative)
[2024-11-18] VITALS (113 sets, daily range): BP systolic 91–142; BP diastolic 67–107; PULSE 86–136; RESP 21–30; TEMP 36.3918–38; O2SAT 94–100
[2024-11-18 03:33] LABS: BG CARBOXYHEMOGLOBIN 0.3 % (0.5-1.5); BG DEOXYHEMOGLOBIN 8.3 % (0.0-5.0); BG FRACTION INSPIRED OXYGEN 50; BG HCO3 ACT 22.9 mmol/L (21.0-28.0); BG METHEMOGLOBIN 0.3 % (0.5-1.5); BG OXYGEN SATURATION 91.6 % (94.0-98.0); BG OXYHEMOGLOBIN 91.1 % (94.0-98.0); BG PCO2 45.2 mmHg (35.0-48.0); BG PH 7.323 (7.350-7.450); BG TOTAL HEMOGLOBIN 9.3 g/dL (13.5-17.5); BG VENT MODE VENT - AC
[2024-11-18] MEDS: MIDAZOLAM 100MG/100ML PMX 100 ML IV PRN (04:16)
[2024-11-18 05:54] LABS: MEAN CORPUSCULAR HEMOGLOBIN 28.7 pg (28.0-32.0); MEAN CORPUSCULAR HGB CONC 33.7 g/dL (31.0-37.0); MEAN CORPUSCULAR VOLUME 85.1 fL (80.0-94.0); RED CELL DISTRIBUTION WIDTH 18.3 % (11.6-14.6); WHITE BLOOD COUNT 18.9 x1000/uL (4.5-11.0)
[2024-11-18 05:56] LABS: CALCIUM 6.8 mg/dL (8.7-10.4)
[2024-11-18 06:17] LABS: HEMATOCRIT 19.5 % (42.0-52.0); HEMOGLOBIN 6.6 g/dL (14.0-18.0)
[2024-11-18 06:18] LABS: PLATELET 48 x1000/uL (130-400)
[2024-11-18 06:52] LABS: CREATININE 2.7 mg/dL (0.6-1.3)
[2024-11-18] MEDS: MEROPENEM 500 MG in DEXTROSE 5% WATER 50 ML IV SCH (08:27)
[2024-11-18] MEDS: METOPROLOL TARTRATE 25MG TABLET PO SCH (12:00)
[2024-11-18] MEDS: MIDODRINE HCL 5MG TABLET PO SCH (12:27)
[2024-11-18] MEDS: IPRATROPIUM BROMIDE (0.02%) 0.5MG/2.5ML NEB HHN SCH (15:48)
[2024-11-18 20:41] LABS: HEMATOCRIT 32.5 % (42.0-52.0); HEMOGLOBIN 10.5 g/dL (14.0-18.0)
[2024-11-18 21:12] LABS: INR 1.2; PROTHROMBIN TIME 12.3 sec (9.6-11.0)
[2024-11-19] VITALS (101 sets, daily range): BP systolic 66–140; BP diastolic 52–97; PULSE 88–132; RESP 22–35; TEMP 36.1–36.6696; O2SAT 93–100
[2024-11-19] MEDS: DEXTROSE 50% WATER 50ML SYRINGE IV PRN (05:31)
[2024-11-19 06:38] LABS: HEMATOCRIT. 34.8 % (42.0-52.0); HEMOGLOBIN. 11.6 g/dL (14.0-18.0); MEAN CORPUSCULAR HEMOGLOBIN 28.6 pg (28.0-32.0); MEAN CORPUSCULAR HGB CONC 33.3 g/dL (31.0-37.0); MEAN PLATELET VOLUME 9.9 fl (7.4-10.4); RED BLOOD CELL COUNT 4.04 mill/uL (4.7-6.1); RED CELL DISTRIBUTION WIDTH 17.6 % (11.6-14.6); WHITE BLOOD COUNT 16.7 x1000/uL (4.5-11.0)
[2024-11-19 06:39] LABS: CHLORIDE 99 mEq/L (98-107); POTASSIUM 4.3 mEq/L (3.5-5.1); SODIUM 136 mEq/L (136-145)
[2024-11-19 06:40] LABS: CALCIUM 7.4 mg/dL (8.7-10.4); CARBON DIOXIDE 25 mEq/L (21-32)
[2024-11-19 06:45] LABS: CREATININE 3.2 mg/dL (0.6-1.3); UREA NITROGEN BLOOD 76 mg/dL (9-23)
[2024-11-19 06:47] LABS: PHOSPHORUS 6.2 mg/dL (2.5-4.9)
[2024-11-19 06:48] LABS: GLUCOSE 158 mg/dL (70-105)
[2024-11-19 06:52] LABS: DIFFERENTIAL COMMENT 1
[2024-11-19 06:53] LABS: PLATELET 45 x1000/uL (130-400)
[2024-11-19 12:22] LABS: BG BASE EXCESS -0.9 mmol/L (-2.0-3.0); BG CARBOXYHEMOGLOBIN 0.8 % (0.5-1.5); BG DEOXYHEMOGLOBIN 5.4 % (0.0-5.0); BG FRACTION INSPIRED OXYGEN 60; BG HCO3 ACT 25.5 mmol/L (21.0-28.0); BG METHEMOGLOBIN 0.1 % (0.5-1.5); BG OXYGEN SATURATION 94.6 % (94.0-98.0); BG OXYHEMOGLOBIN 93.7 % (94.0-98.0); BG PCO2 49.4 mmHg (35.0-48.0); BG PH 7.331 (7.350-7.450); BG PO2 76.7 mmHg (83.0-108.0); BG SAMPLE SITE LEFT BRACHIAL; BG TOTAL HEMOGLOBIN 12.4 g/dL (13.5-17.5); BG VENT MODE VENT - AC
[2024-11-19] MEDS: LANTHANUM CARBONATE 500MG CHEW TABLET PO SCH (12:38)
[2024-11-19 17:11] LABS: ANISOCYTOSIS 1+; PLATELET ESTIMATE MARKEDLY DECREASED
[2024-11-19] MEDS: METOPROLOL TARTRATE 25MG TABLET PO SCH (22:00)
[2024-11-19] MEDS ORDERED: NOREPINEPHRINE 8 MG in DEXT 5% WATER 242 ML IV PRN (22:30)
[2024-11-19] MEDS ORDERED: NOREPINEPHRINE 8MG/250ML PMX 250 ML IV PRN (22:30)
[2024-11-19] MEDS ORDERED: LACTATED RINGERS 500 ML IV NR (22:30)
[2024-11-19 22:46] LABS: BG BASE EXCESS -6.1 mmol/L (-2.0-3.0); BG CARBOXYHEMOGLOBIN 0.8 % (0.5-1.5); BG DEOXYHEMOGLOBIN 11.4 % (0.0-5.0); BG FRACTION INSPIRED OXYGEN 100; BG HCO3 ACT 25.1 mmol/L (21.0-28.0); BG METHEMOGLOBIN 0.1 % (0.5-1.5); BG OXYGEN SATURATION 88.5 % (94.0-98.0); BG OXYHEMOGLOBIN 87.7 % (94.0-98.0); BG PCO2 83.3 mmHg (35.0-48.0); BG PH 7.097 (7.350-7.450); BG PO2 71.3 mmHg (83.0-108.0); BG SAMPLE SITE RIGHT BRACHIAL; BG TOTAL HEMOGLOBIN 12.4 g/dL (13.5-17.5); BG VENT MODE VENT - SIMV
[2024-11-19] MEDS: CALCIUM CHLORIDE 1GM/10ML SYR IV NR (23:32)
[2024-11-20] VITALS (80 sets, daily range): BP systolic 77–116; BP diastolic 58–88; PULSE 116–128; RESP 28–41; TEMP 36.5–37.2; O2SAT 91–100
[2024-11-20 00:30] LABS: BG BASE EXCESS -5.3 mmol/L (-2.0-3.0); BG CARBOXYHEMOGLOBIN 0.7 % (0.5-1.5); BG DEOXYHEMOGLOBIN 14.3 % (0.0-5.0); BG FRACTION INSPIRED OXYGEN 100; BG HCO3 ACT 23.5 mmol/L (21.0-28.0); BG METHEMOGLOBIN 0.1 % (0.5-1.5); BG OXYGEN SATURATION 85.6 % (94.0-98.0); BG OXYHEMOGLOBIN 84.9 % (94.0-98.0); BG PCO2 61.8 mmHg (35.0-48.0); BG PH 7.198 (7.350-7.450); BG PO2 59.1 mmHg (83.0-108.0); BG SAMPLE SITE LEFT BRACHIAL; BG TOTAL HEMOGLOBIN 12.3 g/dL (13.5-17.5); BG VENT MODE VENT - AC
[2024-11-20 02:18] LABS: BG BASE EXCESS -4.4 mmol/L (-2.0-3.0); BG CARBOXYHEMOGLOBIN 0.3 % (0.5-1.5); BG DEOXYHEMOGLOBIN 9.2 % (0.0-5.0); BG FRACTION INSPIRED OXYGEN 100; BG METHEMOGLOBIN 0.3 % (0.5-1.5); BG OXYGEN SATURATION 90.7 % (94.0-98.0); BG OXYHEMOGLOBIN 90.2 % (94.0-98.0); BG PCO2 52.5 mmHg (35.0-48.0); BG PO2 65.6 mmHg (83.0-108.0); BG TOTAL HEMOGLOBIN 12.4 g/dL (13.5-17.5); BG VENT MODE VENT - P/C
[2024-11-20] MEDS: MIDAZOLAM 100MG/100ML PMX 100 ML IV PRN (04:47)
[2024-11-20 07:51] LABS: CHLORIDE 101 mEq/L (98-107); SODIUM 136 mEq/L (136-145)
[2024-11-20 07:52] LABS: CALCIUM 8.1 mg/dL (8.7-10.4); CARBON DIOXIDE 21 mEq/L (21-32)
[2024-11-20 07:57] LABS: CREATININE 2.6 mg/dL (0.6-1.3); GLUCOSE 228 mg/dL (70-105); UREA NITROGEN BLOOD 54 mg/dL (9-23)
[2024-11-20 08:00] LABS: PHOSPHORUS 5.2 mg/dL (2.5-4.9)
[2024-11-20 09:07] LABS: BG BASE EXCESS -5.8 mmol/L (-2.0-3.0); BG CARBOXYHEMOGLOBIN 0.2 % (0.5-1.5); BG DEOXYHEMOGLOBIN 2.5 % (0.0-5.0); BG FRACTION INSPIRED OXYGEN 100; BG HCO3 ACT 21.1 mmol/L (21.0-28.0); BG METHEMOGLOBIN 0.1 % (0.5-1.5); BG OXYGEN SATURATION 97.5 % (94.0-98.0); BG OXYHEMOGLOBIN 97.2 % (94.0-98.0); BG PCO2 47.4 mmHg (35.0-48.0); BG PH 7.266 (7.350-7.450); BG PO2 107.4 mmHg (83.0-108.0); BG SAMPLE SITE LEFT BRACHIAL; BG TOTAL HEMOGLOBIN 11.5 g/dL (13.5-17.5); BG TOTAL RESPIRATORY RATE 33 b/min; BG VENT MODE VENT - P/C
[2024-11-20] MEDS ORDERED: LORAZEPAM 2MG/ML INJ IV PRN (09:15)
[2024-11-20 10:02] LABS: HEMATOCRIT 34.1 % (42.0-52.0); HEMOGLOBIN 10.9 g/dL (14.0-18.0); MEAN CORPUSCULAR HEMOGLOBIN 27.6 pg (28.0-32.0); MEAN CORPUSCULAR HGB CONC 31.9 g/dL (31.0-37.0); MEAN CORPUSCULAR VOLUME 86.4 fL (80.0-94.0); RED BLOOD CELL COUNT 3.95 mill/uL (4.7-6.1); RED CELL DISTRIBUTION WIDTH 18.3 % (11.6-14.6); WHITE BLOOD COUNT 15.7 x1000/uL (4.5-11.0)
[2024-11-20] MEDS: MORPHINE SULFATE 2 MG/ML INJ (NOT FOR IM USE) IV SCH (11:02)
[2024-11-20 11:41] LABS: PLATELET 32 x1000/uL (130-400)
[2024-11-20] MEDS: MIDODRINE HCL 5MG TABLET PO SCH (13:03)
[2024-11-20] MEDS: NOREPINEPHRINE 8MG/250ML PMX 250 ML IV PRN (17:03)
[2024-11-20] MEDS: MEROPENEM 500MG/50ML 50 ML IV SCH (18:21)
[2024-11-21] VITALS (103 sets, daily range): BP systolic 89–120; BP diastolic 61–88; PULSE 97–118; RESP 24–32; TEMP 36.3–36.5; O2SAT 93–100
[2024-11-21 06:01] LABS: HEMATOCRIT. 30.3 % (42.0-52.0); HEMOGLOBIN. 9.9 g/dL (14.0-18.0); MEAN CORPUSCULAR HEMOGLOBIN 28.6 pg (28.0-32.0); MEAN CORPUSCULAR HGB CONC 32.7 g/dL (31.0-37.0); MEAN CORPUSCULAR VOLUME 87.5 fL (80.0-94.0); MEAN PLATELET VOLUME 10.7 fl (7.4-10.4); RED BLOOD CELL COUNT 3.46 mill/uL (4.7-6.1); RED CELL DISTRIBUTION WIDTH 18.3 % (11.6-14.6); WHITE BLOOD COUNT 20.1 x1000/uL (4.5-11.0)
[2024-11-21 06:03] LABS: CALCIUM 8.5 mg/dL (8.7-10.4)
[2024-11-21 06:07] LABS: CREATININE 2.9 mg/dL (0.6-1.3)
[2024-11-21 06:44] LABS: DIFFERENTIAL COMMENT 1; PLATELET 39 x1000/uL (130-400)
[2024-11-21 09:20] LABS: ANISOCYTOSIS 2+; PLATELET ESTIMATE MARKEDLY DECREASED
[2024-11-21 09:56] LABS: BG BASE EXCESS -5.7 mmol/L (-2.0-3.0); BG CARBOXYHEMOGLOBIN 0.3 % (0.5-1.5); BG DEOXYHEMOGLOBIN 0.8 % (0.0-5.0); BG FRACTION INSPIRED OXYGEN 100; BG HCO3 ACT 23.5 mmol/L (21.0-28.0); BG METHEMOGLOBIN 0.3 % (0.5-1.5); BG OXYGEN SATURATION 99.2 % (94.0-98.0); BG OXYHEMOGLOBIN 98.6 % (94.0-98.0); BG PH 7.156 (7.350-7.450); BG SAMPLE SITE RIGHT RADIAL; BG TOTAL HEMOGLOBIN 9.8 g/dL (13.5-17.5); BG VENT MODE VENT - P/C
[2024-11-21] MEDS: MEROPENEM 500 MG in DEXTROSE 5% WATER 50 ML IV SCH (17:30)
[2024-11-21] MEDS: DAPTOMYCIN 500 MG in SODIUM CHLORIDE 0.9% 50 ML IV SCH (20:33)
[2024-11-21] MEDS: MIDODRINE HCL 5MG TABLET PO SCH (21:10)
[2024-11-22] VITALS (110 sets, daily range): BP systolic 57–152; BP diastolic 24–103; PULSE 41–175; RESP 25–49; TEMP 35.89176–37; O2SAT 82–100
[2024-11-22] MEDS: MIDODRINE HCL 5MG TABLET PO SCH (05:34)
[2024-11-22 06:17] LABS: HEMATOCRIT. 25.7 % (42.0-52.0); HEMOGLOBIN. 8.6 g/dL (14.0-18.0); MEAN CORPUSCULAR HEMOGLOBIN 28.1 pg (28.0-32.0); MEAN CORPUSCULAR HGB CONC 33.3 g/dL (31.0-37.0); MEAN CORPUSCULAR VOLUME 84.4 fL (80.0-94.0); MEAN PLATELET VOLUME 9.9 fl (7.4-10.4); RED BLOOD CELL COUNT 3.04 mill/uL (4.7-6.1); RED CELL DISTRIBUTION WIDTH 18.5 % (11.6-14.6); WHITE BLOOD COUNT 15.7 x1000/uL (4.5-11.0)
[2024-11-22 06:24] LABS: DIFFERENTIAL COMMENT 1; PLATELET 27 x1000/uL (130-400)
[2024-11-22 06:36] LABS: CHLORIDE 98 mEq/L (98-107); POTASSIUM 4.5 mEq/L (3.5-5.1); SODIUM 134 mEq/L (136-145)
[2024-11-22 06:37] LABS: CALCIUM 8.5 mg/dL (8.7-10.4); CARBON DIOXIDE 24 mEq/L (21-32)
[2024-11-22 06:42] LABS: CREATINE KINASE 15 IU/L (46-171); CREATININE 3.3 mg/dL (0.6-1.3); GLUCOSE 144 mg/dL (70-105); UREA NITROGEN BLOOD 78 mg/dL (9-23)
[2024-11-22 06:44] LABS: PHOSPHORUS 4.5 mg/dL (2.5-4.9)
[2024-11-22 07:00] LABS: ANISOCYTOSIS 1+; PLATELET ESTIMATE MARKEDLY DECREASED
[2024-11-22 09:30] LABS: BG BASE EXCESS -3.4 mmol/L (-2.0-3.0); BG CARBOXYHEMOGLOBIN 0.6 % (0.5-1.5); BG DEOXYHEMOGLOBIN 7.1 % (0.0-5.0); BG FRACTION INSPIRED OXYGEN 50; BG METHEMOGLOBIN 0.3 % (0.5-1.5); BG OXYGEN SATURATION 92.8 % (94.0-98.0); BG PCO2 40.9 mmHg (35.0-48.0); BG PH 7.349 (7.350-7.450); BG PO2 70.5 mmHg (83.0-108.0); BG SAMPLE SITE LEFT RADIAL; BG TOTAL HEMOGLOBIN 11.2 g/dL (13.5-17.5); BG VENT MODE VENT - PRVC
[2024-11-22] MEDS: METHYLPREDNISOLONE SOD SUCC 40MG/ML (ACT-O-VIAL) IV SCH (13:08)
[2024-11-22] MEDS: LORAZEPAM 2MG/ML INJ IV PRN (13:33)
[2024-11-22] MEDS: LORAZEPAM 2MG/ML INJ IV NR (14:05)
[2024-11-22] MEDS: MIDAZOLAM 100MG/100ML PMX 100 ML IV PRN (14:45)
[2024-11-22] MEDS: FAMOTIDINE 20MG/2ML VIAL IV SCH (15:53)
[2024-11-22 21:34] LABS: BG BASE EXCESS -8.5 mmol/L (-2.0-3.0); BG CARBOXYHEMOGLOBIN 0.2 % (0.5-1.5); BG DEOXYHEMOGLOBIN 8.1 % (0.0-5.0); BG FRACTION INSPIRED OXYGEN 100; BG HCO3 ACT 21.1 mmol/L (21.0-28.0); BG METHEMOGLOBIN 0.3 % (0.5-1.5); BG OXYGEN SATURATION 91.9 % (94.0-98.0); BG OXYHEMOGLOBIN 91.4 % (94.0-98.0); BG PCO2 63.6 mmHg (35.0-48.0); BG PH 7.138 (7.350-7.450); BG PO2 82.4 mmHg (83.0-108.0); BG SAMPLE SITE RIGHT FEMORAL; BG TOTAL HEMOGLOBIN 11.6 g/dL (13.5-17.5)
[2024-11-23] VITALS (27 sets, daily range): BP systolic 31–106; BP diastolic 21–82; PULSE 24–138; RESP 30–46; TEMP 36.4–36.5; O2SAT 69–94
[2024-11-23 01:31] LABS: BG BASE EXCESS -6.7 mmol/L (-2.0-3.0); BG CARBOXYHEMOGLOBIN 0.5 % (0.5-1.5); BG DEOXYHEMOGLOBIN 25.5 % (0.0-5.0); BG FRACTION INSPIRED OXYGEN 100; BG HCO3 ACT 21.2 mmol/L (21.0-28.0); BG METHEMOGLOBIN 0.3 % (0.5-1.5); BG OXYGEN SATURATION 74.3 % (94.0-98.0); BG OXYHEMOGLOBIN 73.7 % (94.0-98.0); BG PCO2 53.3 mmHg (35.0-48.0); BG PH 7.218 (7.350-7.450); BG PO2 47.1 mmHg (83.0-108.0); BG SAMPLE SITE ALINE; BG TOTAL HEMOGLOBIN 11.2 g/dL (13.5-17.5); BG VENT MODE VENT - AC
[2024-11-23 03:20] LABS: BG BASE EXCESS -12.3 mmol/L (-2.0-3.0); BG CARBOXYHEMOGLOBIN 0.2 % (0.5-1.5); BG DEOXYHEMOGLOBIN 10.7 % (0.0-5.0); BG FRACTION INSPIRED OXYGEN 100; BG METHEMOGLOBIN 0.3 % (0.5-1.5); BG OXYGEN SATURATION 89.2 % (94.0-98.0); BG OXYHEMOGLOBIN 88.8 % (94.0-98.0); BG PCO2 73.5 mmHg (35.0-48.0); BG PO2 79.1 mmHg (83.0-108.0); BG TOTAL HEMOGLOBIN 11.4 g/dL (13.5-17.5); BG VENT MODE PC/AC
[2024-11-23] MEDS ORDERED: LORAZEPAM 2MG/ML INJ IV NR (05:30)
[2024-11-23] MEDS: MORPHINE SULFATE 4 MG/ML INJ (FOR IV/IM USE) IV NR (05:35)
== END 2024-11-23 07:59 | DRG 720 ==
LOC: ER 13:45 → MICUSO 18:16 → EDBEDREQSVC 11-06 00:10 → 5EST 11-06 09:34 → CVICU 11-12 19:33
PROVIDERS: ADMIT Internal Medicine; ATTEND Internal Medicine
PROC: 5A1955Z Respiratory Ventilation, Greater than 96 Consecutive Hours (ICD-10-PCS; principal; 2024-11-12)
PROC: 0BH17EZ Insertion of Endotracheal Airway into Trachea, Via Natural or Artificial Opening (ICD-10-PCS; 2024-11-12)
PROC: 30233N1 Transfusion of Nonautologous Red Blood Cells into Peripheral Vein, Percutaneous Approach (ICD-10-PCS; 2024-11-13)
PROC: 05HY33Z Insertion of Infusion Device into Upper Vein, Percutaneous Approach (ICD-10-PCS; 2024-11-13)
PROC: B54MZZA Ultrasonography of Right Upper Extremity Veins, Guidance (ICD-10-PCS; 2024-11-13)
PROC: 5A1D70Z Performance of Urinary Filtration, Intermittent, Less than 6 Hours Per Day (ICD-10-PCS; 2024-11-17)
PROC: 05HM33Z Insertion of Infusion Device into Right Internal Jugular Vein, Percutaneous Approach (ICD-10-PCS; 2024-11-17)
PROC: B543ZZA Ultrasonography of Right Jugular Veins, Guidance (ICD-10-PCS; 2024-11-17)
PROC: 5A1D70Z Performance of Urinary Filtration, Intermittent, Less than 6 Hours Per Day (ICD-10-PCS; 2024-11-19)
PROC: 5A1D70Z Performance of Urinary Filtration, Intermittent, Less than 6 Hours Per Day (ICD-10-PCS; 2024-11-22)
PROC: 03HY32Z Insertion of Monitoring Device into Upper Artery, Percutaneous Approach (ICD-10-PCS; 2024-11-22)
PROC: 5A12012 Performance of Cardiac Output, Single, Manual (ICD-10-PCS; 2024-11-23)
DX: A41.81 Sepsis due to Enterococcus (principal); J96.01 Acute respiratory failure with hypoxia; N17.0 Acute kidney failure with tubular necrosis; J69.0 Pneumonitis due to inhalation of food and vomit; R65.21 Severe sepsis with septic shock; G93.41 Metabolic encephalopathy; E87.20 Acidosis, unspecified; L89.150 Pressure ulcer of sacral region, unstageable; R64 Cachexia; D69.6 Thrombocytopenia, unspecified; E83.39 Other disorders of phosphorus metabolism; E11.22 Type 2 diabetes mellitus with diabetic chronic kidney disease; D64.9 Anemia, unspecified; I46.9 Cardiac arrest, cause unspecified; E46 Unspecified protein-calorie malnutrition; E78.5 Hyperlipidemia, unspecified; N40.0 Benign prostatic hyperplasia without lower urinary tract symptoms; N39.0 Urinary tract infection, site not specified; J96.02 Acute respiratory failure with hypercapnia; B95.2 Enterococcus as the cause of diseases classified elsewhere; Z16.21 Resistance to vancomycin; E11.65 Type 2 diabetes mellitus with hyperglycemia; T38.0X5A Adverse effect of glucocorticoids and synthetic analogues, initial encounter; I13.10 Hypertensive heart and chronic kidney disease without heart failure, with stage 1 through stage 4 chronic kidney disease, or unspecified chronic kidney disease; N18.9 Chronic kidney disease, unspecified; E78.1 Pure hyperglyceridemia; E83.51 Hypocalcemia; E87.1 Hypo-osmolality and hyponatremia; J32.0 Chronic maxillary sinusitis; B37.9 Candidiasis, unspecified; Y95 Nosocomial condition; Y92.89 Other specified places as the place of occurrence of the external cause; Z86.74 Personal history of sudden cardiac arrest; Z68.1 Body mass index [BMI] 19.9 or less, adult
CPT/HCPCS: 31500; 36415; 36556; 36573; 36600; 71045; 76770; 76937; 80048; 80076; 80305; 81003; 82010; 82040; 82270; 82375; 82550; 82805; 82962; 83036; 83605; 83735; 83880; 84100; 84145; 84443; 84478; 84484; 85014; 85018; 85025; 85027; 85049; 85384; 85651; 86705; 86706; 86709; 86850; 86900; 86920; 87077; 87106; 87186; 87340; 87804; 90935; 93005; 93306; 93970; 94002; 94003; 94070; 94640; 94664; 99291; A4606; A6261; C1725; C1752; C1893; J0692; J0878; J1160; J1450; J1650; J1815; J2003; J2020; J2060; J2185; J2250; J2270; J2470; J2543; J2704; J2920; J3010; J3370; J3490; J7030; J7042; J7050; J7060; J7070; J7608; P9016; P9041